=== PATIENT | female | born 1975 | race African-American/Black ===

== ENCOUNTER 2017-12-12 08:14 | Emergency (ER) | payer MEDICAID ==
[~2017-12-12] VITALS: Ht 154.9 cm; Wt 63.0 kg
[2017-12-12 09:19] LABS: BASOPHILS % 0.3 % (0.0-2.0); EOSINOPHILS % 0.4 % (0.0-5.0); HEMATOCRIT. 40.7 % (36.0-48.0); HEMOGLOBIN. 13.6 g/dL (12.0-16.0); LYMPHOCYTES % 18.7 % (20.0-50.0); MEAN CORPUSCULAR HEMOGLOBIN 29.4 pg (28.0-32.0); MEAN CORPUSCULAR VOLUME 87.8 fL (81.0-99.0); MEAN PLATELET VOLUME 8.2 fl (7.4-10.4); MONOCYTES % 5.4 % (2.0-8.0); NEUTROPHILS % 75.2 % (40.0-76.0); PLATELET 349 x1000/uL (130-400); RED BLOOD CELL COUNT 4.64 mill/uL (4.2-5.4); RED CELL DISTRIBUTION WIDTH 13.1 % (11.6-14.6)
[2017-12-12 09:21] LABS: CHLORIDE 100 mEq/L (98-107)
[2017-12-12 09:41] LABS: HCG SCREEN NEGATIVE
[2017-12-12] MEDS ORDERED: POTASSIUM CHLORIDE 20MEQ TABLET SR PO ONE (10:15)
[2017-12-12 13:16] VITALS: BP 135/87
== END 2017-12-12 13:23 | disposition home or self-care (01) ==
LOC: ER 08:14
DX: R06.02 Shortness of breath (principal); R00.0 Tachycardia, unspecified; E87.6 Hypokalemia; R03.0 Elevated blood-pressure reading, without diagnosis of hypertension; Z91.018 Allergy to other foods; Z91.040 Latex allergy status
CPT/HCPCS: 36415; 71045; 80053; 83880; 84484; 84703; 85025; 85379; 93005; 99285

== ENCOUNTER 2018-04-28 19:13 | Emergency (ER) | payer MEDICAID ==
[~2018-04-28] VITALS: Ht 154.9 cm; Wt 66.0 kg
[2018-04-28 20:19] VITALS: BP 166/92
== END 2018-04-29 01:24 | disposition left against medical advice (07) ==
LOC: ER 19:13
DX: Z53.21 Procedure and treatment not carried out due to patient leaving prior to being seen by health care provider (principal)

== ENCOUNTER 2019-04-22 13:33 | Inpatient (IN) | payer MEDICAID ==
[~2019-04-22] VITALS: Ht 152.4 cm; Wt 63.5 kg
[2019-04-22 16:01] LABS: BASOPHILS % 0.2 % (0.0-2.0); EOSINOPHILS % 0.6 % (0.0-5.0); HEMATOCRIT. 40.7 % (36.0-48.0); HEMOGLOBIN. 13.2 g/dL (12.0-16.0); LYMPHOCYTES % 18.7 % (20.0-50.0); MEAN CORPUSCULAR HEMOGLOBIN 28.5 pg (28.0-32.0); MEAN CORPUSCULAR VOLUME 87.8 fL (81.0-99.0); MEAN PLATELET VOLUME 8.1 fl (7.4-10.4); MONOCYTES % 5.7 % (2.0-8.0); NEUTROPHILS % 74.8 % (40.0-76.0); PLATELET 356 x1000/uL (130-400); RED BLOOD CELL COUNT 4.63 mill/uL (4.2-5.4); RED CELL DISTRIBUTION WIDTH 13.3 % (11.6-14.6)
[2019-04-22 16:06] LABS: CHLORIDE 109 mEq/L (98-107)
[2019-04-22 16:10] LABS: D-DIMER 0.28 mg/L FEU (<0.50); PARTIAL THROMBOPLASTIN TIME 25.9 sec (23.4-31.0); PROTHROMBIN TIME 10.3 sec (9.6-11.0)
[2019-04-22 16:25] LABS: HCG SCREEN NEGATIVE
[2019-04-22] MEDS ORDERED: ONDANSETRON HCL 4MG/2ML INJ IV PRN (18:30)
[2019-04-22] MEDS ORDERED: ACETAMINOPHEN 325MG TABLET PO PRN (18:30)
[2019-04-22] MEDS ORDERED: IPRATROPIUM/ALBUTEROL 0.5-3(2.5)MG/3ML NEB HHN PRN (18:30)
[2019-04-22] MEDS ORDERED: DIPHENHYDRAMINE 50MG/ML VIAL IV PRN (18:30)
[2019-04-22 19:08] LABS: PHOSPHORUS 2.4 mg/dL (2.5-4.9)
[2019-04-22] MEDS ORDERED: ASPIRIN 325MG EC TABLET PO ONE (19:30)
[2019-04-22 22:58] VITALS: BP 137/78
[2019-04-22] MEDS: ENOXAPARIN 40MG/0.4ML SYR SUBCUT SCH (23:59)
[2019-04-23] MEDS ORDERED: FAMO40TA70 PO (03:36)
[2019-04-23 04:00] VITALS: BP 111/76
[2019-04-23 07:41] LABS: BASOPHILS % 0.4 % (0.0-2.0); EOSINOPHILS % 1.6 % (0.0-5.0); HEMATOCRIT. 40.1 % (36.0-48.0); HEMOGLOBIN. 13.3 g/dL (12.0-16.0); LYMPHOCYTES % 30.9 % (20.0-50.0); MEAN CORPUSCULAR HEMOGLOBIN 28.4 pg (28.0-32.0); MEAN PLATELET VOLUME 8.3 fl (7.4-10.4); MONOCYTES % 6.1 % (2.0-8.0); PLATELET 360 x1000/uL (130-400); RED BLOOD CELL COUNT 4.66 mill/uL (4.2-5.4); RED CELL DISTRIBUTION WIDTH 13.4 % (11.6-14.6)
[2019-04-23 07:55] LABS: CHLORIDE 106 mEq/L (98-107)
[2019-04-23 08:00] VITALS: BP 118/73
[2019-04-23 08:02] LABS: LDL CHOLESTEROL 130 mg/dL (5-100)
[2019-04-23 08:03] LABS: HDL CHOLESTEROL 46 mg/dL (40-59)
[2019-04-23 12:00] VITALS: BP 124/79
[2019-04-23 16:00] VITALS: BP 118/81
[2019-04-23] MEDS: ENOXAPARIN 40MG/0.4ML SYR SUBCUT SCH (20:36)
[2019-04-23] MEDS ORDERED: ATORVASTATIN CALCIUM 20MG TABLET PO SCH (21:00)
[2019-04-24] VITALS (7 sets, daily range): BP systolic 111–121; BP diastolic 66–87
[2019-04-24 06:34] LABS: BASOPHILS % 0.4 % (0.0-2.0); EOSINOPHILS % 1.4 % (0.0-5.0); HEMOGLOBIN. 12.8 g/dL (12.0-16.0); LYMPHOCYTES % 32.1 % (20.0-50.0); MEAN CORPUSCULAR HEMOGLOBIN 28.7 pg (28.0-32.0); MEAN CORPUSCULAR VOLUME 85.6 fL (81.0-99.0); MONOCYTES % 7.1 % (2.0-8.0); PLATELET 344 x1000/uL (130-400); RED BLOOD CELL COUNT 4.44 mill/uL (4.2-5.4); RED CELL DISTRIBUTION WIDTH 13.5 % (11.6-14.6)
[2019-04-24 08:02] LABS: CHLORIDE 106 mEq/L (98-107)
[2019-04-24 08:10] LABS: LDL CHOLESTEROL 130 mg/dL (5-100)
[2019-04-24 08:12] LABS: HDL CHOLESTEROL 41 mg/dL (40-59)
[2019-04-24] MEDS ORDERED: FAMOTIDINE 20MG TABLET PO SCH (09:00)
[2019-04-24] MEDS ORDERED: ATOR20TA PO (12:04)
[2019-04-24 18:45] LABS: VITAMIN B12 SERUM 460 pg/mL (211-911)
== END 2019-04-24 20:10 | disposition home or self-care (01) | DRG 203 ==
LOC: ER 13:33 → 5WST 17:58 → ENRESERV 22:08
PROVIDERS: ADMIT Internal Medicine; ATTEND Internal Medicine
DX: M94.0 Chondrocostal junction syndrome [Tietze] (principal); K76.0 Fatty (change of) liver, not elsewhere classified; E78.00 Pure hypercholesterolemia, unspecified; E78.5 Hyperlipidemia, unspecified; K21.9 Gastro-esophageal reflux disease without esophagitis; Z82.49 Family history of ischemic heart disease and other diseases of the circulatory system; Z91.040 Latex allergy status; Z91.018 Allergy to other foods
CPT/HCPCS: 36415; 71045; 76700; 80048; 80053; 80061; 82607; 82962; 83735; 83880; 84100; 84443; 84484; 84703; 85025; 85379; 93005; 93306; 93971; 99285; J1650